=== PATIENT | male | born 1990 | race Hispanic/Latino ===

== ENCOUNTER → 2024-09-03 | Outpatient (CLI) | payer OTHER ==
--- NOTE | 2024-09-03 12:10 | HMCIMG ---
US SCROTUM & CONTENTS HISTORY: Left testicular pain COMPARISON: None TECHNIQUE: Duplex scrotal ultrasound study was performed. FINDINGS: The right testes measures 3.6 x 2 x 2.4 cm. The left testes measures 3.5 x 1.9 x 2.2 cm. No evidence of intratesticular mass or abnormal calcification is seen. Normal flow is demonstrated in the testes and epididymides bilaterally. No hydroceles or varicocele is seen. There is left epididymal head cyst measuring 11 x 9 x 12 mm. IMPRESSION: 1. No evidence of intratesticular mass is seen. 2. Normal flow is demonstrated of both testes.
== END | disposition home or self-care (01) ==
LOC: EEVIPCON 11:21 → RAH 11:21
PROVIDERS: ATTEND Physical Medicine & Rehabilitation
DX: N50.3 Cyst of epididymis (principal); N50.9 Disorder of male genital organs, unspecified; N50.812 Left testicular pain
CPT/HCPCS: 76870